=== PATIENT | male | born 2000 ===

== ENCOUNTER 2025-01-04 12:54 | Inpatient (IN) | payer OTHER ==
[~2025-01-04] VITALS: Ht 188 cm; Wt 89.3 kg
[2025-01-04] MEDS ORDERED: DiphenhydrAMINE HCl 50 MG/ML 1ML Vial IM PRN (19:45)
[2025-01-04] MEDS ORDERED: Haloperidol Lactate Inj. 5 MG/ML Injection IM PRN (19:45)
[2025-01-04] MEDS ORDERED: Aluminum Hydroxide 320MG/5ML 473 ML PO PRN (19:50)
[2025-01-04] MEDS ORDERED: Polyethylene Glycol 3350 17 gm PO PRN (19:55)
[2025-01-04] MEDS ORDERED: Ondansetron 4 MG SoluTab MM PRN (19:55)
[2025-01-04 20:06] VITALS: BP 133/83
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
--- NOTE | 2025-01-05 05:41 | NUR ---
SHIFT SUMMARY Pt is A&O, calm, cooperative, eye contact is good. Pt presents as depressed with sad affect. Pt endorse SI and HI; please see ADMISSION SUMMARY above for details. Pt denies all hallucinations and pain. Pt was given a snack after the admission assessment. Pt is edentulous after having his teeth pulled in November and is awaiting dentures. Pt spent some time in the TV room with peers before retiring to his room at about 2200. Pt was given PRN melatonin and trazodone. He was able to sleep for about 4.5 hours overnight. Staff continues to monitor q15m for safety and wellness.
[2025-01-05 07:24] VITALS: BP 115/72
[2025-01-05] MEDS ORDERED: Multivitamins 1 Tab PO SCH (09:00)
[2025-01-05 12:33] LABS: CHOL/HDL RATIO 4.4; Cholesterol 159 mg/dL (50-200); HDL Cholesterol 36 mg/dL (>39); LDL/HDL RATIO 3.0; Low Density Lipoprotein Chol 107 mg/dL (<110); Triglycerides 79 mg/dL (30-140); Very Low Density Lipoprot Chol 15 mg/dL (6-28)
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
[2025-01-05 20:50] VITALS: BP 129/82
--- NOTE | 2025-01-06 04:20 | NUR ---
SHIFT SUMMARY PT PRESENT IN MILIEU AT START OF SHIFT. HE REPORTS HIS MOOD BETTER BUT CONTINUES TO ENDORSE SI, WITH NO INTENT WHILE IN U. HE STATES HIS SI HAS NEVER REALLY GONE AWAY SINCE THE AGE OF 6. PT STATES HE WILL NOTIFIY STAFF IF SYMPTOMS WORSEN OR THOUGHTS OF SELF HARM. HE DENIES ANY HI OR CURRENT AVTH, BUT STATES HE SOMETIMES HAS VISUAL HALLUCINATIONS WHERE HE SEES SHADOWS AND HIS MOM. PT IS CALM AND COOPERATIVE WITH CARE. HE HAD HIS EVENING SNACK AND WAS COMPLIANT WITH MEDICATIONS. HE RECEIVED PRN MELATONIN AND TRAZODONE X2 AND WENT TO BED AROUND 2145. HE HAS REMAINED IN BED THROUGHOUT THE NIGHT. Q15 MINUTE CHECKS TO CONTINUE PER PT SAFETY/UNIT PROTOCOL.
[2025-01-06 07:12] VITALS: BP 126/71
--- NOTE | 2025-01-06 16:37 | NUR ---
SHIFT SUMMARY PT A/O X4; PLEASANT AND COOPERATIVE WITH CARE. HE DENIES SI, HI, AVTH. PT REPORTS THAT HE IS FEELING MUCH BETTER AND "THIS IS THE FIRST TIME I HAVEN'T BEEN SUICIDAL IN A LONG TIME". HE ATTENDS ALL GROUPS, MEALS, AND MILEU ACTIVITIES. NO COMPLAINTS OR ACUTE CHANGES THIS SHIFT.
[2025-01-06 19:26] VITALS: BP 137/79
--- NOTE | 2025-01-07 04:09 | NUR ---
SHIFT SUMMARY PT PRESENT IN MILIEU AT START OF SHIFT. HE IS PLEASANT AND COOPERATIVE WITH CARE. PT STATES HE IS FEELING MUCH BETTER, DENIES ANY SI. HE STATES THIS IS THE FIRST TIME HE HASN'T FELT SUICIDAL AND FEELS THOUGH HIS MEDS ARE WORKING. HE REPORTS HI TOWARDS "THE PEOPLE WHO HURT ME". PT STATES HE DOESN'T KNOW WHO THEY ARE, BUT IS ABLE TO SENSE THEM. HE REPORTS VH SEEING SHADOWS WHERE HE IS ABLE TO SEE THINGS HAPPEN BEFORE THEY ACTUALLY DO. HE WATCHED TV AND COLORED, HAD EVENING SNACK, WAS COMPLIANT WITH HIS EVENING MEDS AND RECEIVED PRN MELATONIN AND TRAZODONE X2 WITH GOOD AFFECT. PT WENT TO BED AROUND 2130 AND APPEARS TO HAVE SLEPT WELL, WITH RESPIRATIONS CONFIRMED WITH Q15 MINUTE CHECKS.
[2025-01-07 08:42] VITALS: BP 141/76
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
--- NOTE | 2025-01-07 17:46 | NUR ---
SHIFT NOTE PT WAS EUTHYMIC THIS SHIFT. HE STATES HE IS STARTING TO FEEL BETTER AND IS HOPEFUL. HE WENT TO GROUPS AND PARTICIPATED IN THE MILIEU. PT WAS COMPLIANT WITH ALL MEDICATIONS THIS SHIFT. NO PRN MEDICATIONS WERE NEEDED. SAFETY CHECKS DONE Q15 MINUTES. NO OTHER ACUTE EVENTS THIS SHIFT.
[2025-01-07 20:07] VITALS: BP 125/71
--- NOTE | 2025-01-08 04:19 | NUR ---
SHIFT SUMMARY PT PRESENT IN MILIEU AT START OF SHIFT. HE IS PLEASANT AND COOPERATIVE WITH CARE, DENIES ANY SI, HI, THOUGHTS OF SELF HARM OR AVTH. HE REPORTS HIS MOOD "GREAT" AND STATES HE FEELS READY FOR PLANNED DISCHARGE ON SATURDAY. HE HAD EVENING SNACK AND RECEIVED PRN TRAZODONE AND MELATONIN. PT WENT TO BED AFTER SNACK AND HAS REMAINED THERE THROUGHOUT THE NIGHT. Q15 MINUTE CHECKS TO CONTINUE PER PT SAFETY/UNIT PROTOCOL.
[2025-01-08 08:45] VITALS: BP 126/85
--- NOTE | 2025-01-08 17:12 | NUR ---
SHIFT SUMMARY: PT ALERT, ORIENTED AND COOPERATIVE WITH CARE. PT DENIED SI, HI AND AVH. STATED THAT HE SOMETIMES, "SEES WHERE YOU ARE GOING BEFORE YOU MOVE". HE DENIES THIS AT THIS TIME. PT WAS PRESENT FOR GROUPS AND MEALS. HE WAS ACTIVE IN THE UNIT MILIEU. SPENT TIME IN THE DAY ROOM WATCHING TV AND TALKING WITH PEERS AND STAFF.
[2025-01-08 19:10] VITALS: BP 125/77
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
[2025-01-09 07:44] VITALS: BP 122/80
--- NOTE | 2025-01-09 17:34 | NUR ---
SHIFT SUMMARY PT AA&OX4. HE IS PLEASANT AND COOPERATIVE WITH CARE. HE IS COMPLIANT WITH MEDICATIONS AND DENIES ANY SIDE EFFECTS. HE HAS BEEN UP FOR MEALS, SHOWER AND HAS BEEN INTERACTING WELL WITH PEERS. HE DID REPORT HAVING NIGHTMARES. DR. OMALLEY NOTIFIED AND MINIPRESS ADDED. HE DENIES SI, AVH. HE STAES NO VISUAL VH FOR A "COUPLE DAYS" HE REPORTS HIS MOOD IS BETTER THAN "IT HAS BEEN FOR A LONG TIME" HE HAS NO CONCERNS AT THIS TIME. WILL CONTINUE POC.
--- NOTE | 2025-01-10 04:07 | NUR ---
SHIFT SUMMARY Patient is alert and oriented times four. He was active in the milieu until just after 2100. Denies SI, HI and AVTH during evening assessment. Has slept very well with no signs of waking overnight. Will continue close monitoring every 15 minutes for comfort and safety.
[2025-01-10 07:02] VITALS: BP 123/74
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
[2025-01-10 19:02] VITALS: BP 143/82
--- NOTE | 2025-01-11 04:28 | NUR ---
Patient is alert and oriented times three, with a very sad, flat affect. He did stay out in the milieu until bedtime, and had a snack with his peers. He denied SI, HI and AVTH during assessment and he finished his Safety Plan. Will continue close monitoring every 15 minutes for safety and comfort.
[2025-01-11 07:45] VITALS: BP 136/86
--- NOTE | 2025-01-11 07:48 | NUR ---
SHIFT ASSESSMENT: PT WAS PACING IN THE HALLWAY, "I'M JUST PACING TO MANAGE THE CIGARETTE CRAVINGS." HE DENIED SI, HI, AVH, ANXIETY AND PHYSICAL PAIN. HE REPORTED HIS MOOD , "I'M FEELING PRETTY GOOD...NO ANXIETY OR ANYTHING." HIS AFFECT WAS CONGRUENT WITH HIS STATED MOOD. PT WAS ADEQUATELY GROOMED.
--- NOTE | 2025-01-11 17:02 | NUR ---
PT HAS WALKED THE HALLS WITH A PEER TODAY, HIS AFFECT HAS REMAINED SOMBER. HE HAS BEEN POLITE AND COOPERATIVE. HE ATTENDED GROUPS TODAY AND HAS BEEN ON THE PERIFERY OF THE PT MILIEU.
[2025-01-11 20:14] VITALS: BP 120/80
--- NOTE | 2025-01-11 23:19 | NUR ---
ASSUMED PT CARE @ 1900. PT IS AA&O TO PERSON, PLACE, AND SITUATION. SPEECH AND EYE CONTACT APPROPRIATE. REPORTS MOOD GOOD, AFFECT IS CONGRUENT. HE DENIES SI, AVH. HE WAS IN TV ROOM, AT DINNER AND SNACK. HE HAS BEEN WALKING GONZALEZ AND INTERACTING WELL WITH PEERS. HE IS COMPLIANT WITH MEDICATIONS. HE REPORTS MINIPRESS IS WORKING WELL AND HE HAS NOT HAD A NIGHTMARE THE LAST TWO NIGHTS. HE DEIES ANY ADVERSE EFFECTS. HE IS RESTING IN BED EYES COSED. RR EVEN AND UNLABORED. WILL CONTINUE POC
--- NOTE | 2025-01-12 04:28 | NUR ---
SHIFT SUMMARY Patient is alert and oriented times four. Pleasant and cooperative with care. Has slept all night since taking over care at 2400. Denied SI,HI and AVTH earlier in the evening. Up in the milieu ambulating the halls and enjoying a movie with his peers in the day room prior to going to bed at . Will continue close observaation every 15 minutes for safety and comfort.
[2025-01-12 08:59] VITALS: BP 124/76
--- NOTE | 2025-01-12 18:00 | NUR ---
SHIFT SUMMARY PT A/0 X4; PLEASANT AND COOPERATIVE WITH CARE. PT DENIES SI, HI, AVTH. HE STATES THAT HE IS DOING BETTER BUT AFFECT IS FLAT. PT TALKED WITH GIRLFRIEND ON THE PHONE THIS SHIFT AND CONFIRMED THAT HE IS NOT ALLOWED TO RETURN TO HER RESIDENCE. HE ATTENDS ALL GROUPS, MEALS, AND MILEU ACTIVITIES.
[2025-01-12 20:07] VITALS: BP 133/69
--- NOTE | 2025-01-13 04:07 | NUR ---
SHIFT SUMMARY PATIENT UP IN MILIEU VISITING WITH STAFF AND PEERS. PATIENT VERBALIZED THAT HE IS FEELING "SAD" BECAUSE HE IS NOT GOING TO BE GOING HOME TO HIS GIRLFRIEND. PATIENT VERBALIZED THAT HE HAS BEEN THINKING OF PLACES THAT HE CAN GO WHEN DISCHARGED. IF NEEDING TO GO BACK TO [place] WOULD RATHER STAY AT [facility], BUT FEELS LIKE HE WOULD HAVE AN EASIER TIME GETTING WORK IF HE COULD GO TO [place]. PATIENT DENIES SI, HI, OR AVH. TAKING HS MEDICATIONS WITHOUT DIFFICULTY, REQUESTING TRAZODONE AND MELATONIN FOR SLEEP. PATIENT SLEEPING WELL T/O NIGHT RESP EVEN AND UNLABORED. CONTINUE TO MONITOR Q15MIN.
[2025-01-13 07:30] VITALS: BP 129/76
--- NOTE | 2025-01-13 17:15 | NUR ---
SHIFT SUMMARY: PT ALERT, ORIENTED AND COOPERATIVE WITH CARE. PT DENIED SI, HI AND AVH. PT WAS PRESENT FOR MEALS AND WAS COMPLIANT WITH MEDICATIONS. HE ATTENDED GROUPS AND WAS ACTIVE IN UNIT MILIEU. HE SPENT TIME IN THE DAY ROOM WATCHING TV AND WALKING IN THE HALLS.
[2025-01-13 19:59] VITALS: BP 124/80
--- NOTE | 2025-01-14 04:20 | NUR ---
SHIFT SUMMARY PATIENT UP IN MILIEU VISITING WITH STAFF AND PEERS. VERBALIZED THAT HE IS FEELING "BETTER" TODAY. DENIES SI, HI, OR AVH. COOPERATIVE WITH MEDICATIONS. PATIENT APPEARS TO BE SLEEPING WELL T/O NIGHT RESP EVEN AND UNLABORED. CONTINUE TO MONITOR Q15MIN
[2025-01-14 07:26] VITALS: BP 131/79
--- NOTE | 2025-01-14 15:49 | NUR ---
IMPORTANT DISCHRGE INFORMATION PATIENT TO BE DISCHARGED 01/15/25. TRANSPORT IS COMING AT 1PM TO PICK HIM UP. TRIP # [id number]. PATIENT WILL BE DISCHARGED TO [address] [facility] [address] IN [place]. 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 ALL PARTIES VERBALIZE AN UNDERSTANDING. PCP FOLLOW UP POST HOSPIAL/EVIN ON 01/19/25 AT 2:15PM WITH DR. PIERRE [facility] [place]. REFERRAL TO [facility]ALTH SUBMITTED. [place] [facility], [facility]: FAX # PHONE NUMBER RESOURCES PROVIDED: CUSTODIAL, PHONE, FOOD PANTRIES, FREE CLOTHING SERVICES
--- NOTE | 2025-01-14 16:50 | NUR ---
IMPORTANT DISCHARGE INFORMATION SECURED HOUSING FOUND AT [facility] [address] IN [place]. CHARISSE IS THE DOO . THEY WILL HOLD A BED FOR HIM.
--- NOTE | 2025-01-14 17:18 | NUR ---
SHIFT SUMMARY PT DENIES SI, HI, AVTH. ATTENDED GROUPS, INTERACTING W/ PEERS AND STAFF. HAS BEEN IN DAYROOM WATCHING MOVIE W/ PEERS. PT ENDORSED FEELING "PRETTY GOOD" TODAY. ALSO MENTIONED TO THIS RN THAT CLAUDINE HAS BEEN "WORKING". NO ACUTE EVENTS TODAY.
[2025-01-14 19:05] VITALS: BP 141/85
--- NOTE | 2025-01-15 05:18 | NUR ---
SHIFT SUMMARY: PATIENT WAS FINISHING HIS DINNER AT THE BEGINNING OF THE SHIFT. HE THEN CAME OUT AND WENT TO THE DAYROOM TO WATCH TELEVISION. HE WAS WILLING TO SIT WITH RN AND TALK ABOUT HIS DAY AND HIS FEELINGS. HE STATED, "I'M HAPPY AND SAD ABOUT LEAVING. 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 HE DENIED SUICIDAL IDEATION, THOUGHTS OF SELF HARMING AND A/V/T HALLUCINATIONS. HE PARTICIPATED IN SNACK AND WRAP UP GROUP AT 2030, AND WAS COMPLIANT WITH EVENING MEDICATIONS. HE REMAINED UP UNTIL ABOUT 2130, THEN WAS NOTED TO BE IN BED RESTING WITH EYES CLOSED AND RESPIRATIONS CONFIRMED FOR THE REMAINDER OF THE SHIFT. CONTINUING TO MONITOR FOR SAFETY WITH Q15 MINUTE CHECKS.
[2025-01-15 07:04] VITALS: BP 106/76
[2025-01-15] MEDS ORDERED: BUSP10 PO (11:40)
[2025-01-15] MEDS ORDERED: Prozac20 MG PO (11:40)
[2025-01-15] MEDS ORDERED: OLAN10 PO (11:43)
[2025-01-15] MEDS ORDERED: PRAZ1 PO (11:44)
--- NOTE | 2025-01-15 12:43 | NUR ---
DISCHARGE NO ACUTE EVENTS TODAY. WENT TO GROUPS, INTERACTED W/ PEERS AND STAFF. DENIES SI, HI, AVTH. DISCHARGE FORMS SIGNED, COMMUNNITY RESOURCES GIVEN.
== END 2025-01-15 12:44 | disposition home or self-care (01) | DRG 885 ==
LOC: BHU 12:54
PROVIDERS: ADMIT Psychiatry & Neurology Psychiatry
DX: F33.2 Major depressive disorder, recurrent severe without psychotic features (principal); Z59.01 Sheltered homelessness; F43.25 Adjustment disorder with mixed disturbance of emotions and conduct; F12.90 Cannabis use, unspecified, uncomplicated; F10.10 Alcohol abuse, uncomplicated; Z91.018 Allergy to other foods; F41.9 Anxiety disorder, unspecified; Z79.899 Other long term (current) drug therapy
CPT/HCPCS: 36415; 80061; 83036; A9270